=== PATIENT | male | born 1985 | race Caucasian/White ===

== ENCOUNTER 2020-12-28 08:06 | Emergency (ER) | payer OTHER, SELFPAY ==
--- NOTE | 2020-12-28 08:09 | ED.EYEPROB ---
HPI - Eye Problem General Chief complaint: Eye Problems Stated complaint: Redness and irritation in right Eye Time Seen by Provider: 12/28/20 08:09 Source: patient and RN notes reviewed History of Present Illness HPI Narrative: Patient is a 35-year-old male who presents the urgent care with complaints of matting with right eye redness and irritation. Patient states that it started on Monday after he was fishing. States that he used eyewash with some relief. Patient denies of any known trauma or injury to the eye. Denies of any vision changes. No other acute complaints. No acute distress noted. Patient aware of the plan of care. Some parts of this dictation were generated by voice recognition software and may contain typographical and/or grammatical inaccuracies. Related Data Allergies Allergy/AdvReac Type Severity Reaction Status Date / Time No Known Allergies Allergy Unknown Verified 12/28/20 08:11 Review of Systems Review of Systems: CONSTITUTIONAL: Denies fever, chills, or sweats. EYES: Reports of right eye redness, irritation and matting without visual change ENT: Denies rhinorrhea, congestion, sore throat, or otalgia. CARDIOVASCULAR: Denies chest pain, palpitations, or edema. RESPIRATORY: Denies cough or dyspnea. GASTROINTESTINAL: Denies abdominal pain, nausea, vomiting, or diarrhea. GENITOURINARY: Denies dysuria or hematuria. SKIN: Denies rash or itching. MUSCULOSKELETAL: Denies back pain, joint pain, or myalgia. NEUROLOGIC: Denies headache, numbness, or weakness. All other systems reviewed are negative, except as documented in HPI. PMFSH Comments At the time of my signature, I reviewed and agree with the nursing past medical, surgical, social, and family history. There is no relevant family history pertinent to the patient complaint. Exam Narrative: GENERAL: This is a well-nourished, well-developed patient, in no apparent distress. HEAD: normocephalic, atraumatic. EYES: PERRL. Left sclera clear/white. Right injected erythemic sclera/conjunctiva. Vision is grossly intact. EARS: External ears normal NOSE: External nose normal with no obvious nasal discharge, nares without redness, no rhinorrhea. THROAT: Mucous membranes moist NECK: Neck supple CARDIOVASCULAR: Regular rate and rhythm without murmurs, gallops, or rubs. RESPIRATORY: Clear to auscultation. Breath sounds equal bilaterally. No wheezes, rales, or rhonchi. SKIN: warm, intact with no suspicious lesions or rash, good texture and turgor. NEURO: awake, alert, and oriented to person, place and time. There were no obvious focal neurologic abnormalities. EXTREMITIES: No clubbing, cyanosis, or edema. Course Vital Signs Vital signs: Vital Signs Temperature 99 F 12/28/20 08:12 Pulse Rate 74 12/28/20 08:12 Respiratory Rate 20 12/28/20 08:12 Blood Pressure 130/85 12/28/20 08:12 Pulse Oximetry 99 12/28/20 08:12 Temperature 99 F 12/28/20 08:12 Pulse Rate 74 12/28/20 08:12 Respiratory Rate 20 12/28/20 08:12 Blood Pressure 130/85 12/28/20 08:12 Pulse Oximetry 99 12/28/20 08:12 Reviewed MDM - Eye Problem MDM Narrative Medical decision making narrative: Advised the patient to use the eyedrops to the right eye as directed. Be sure to you complete the full prescription days. May use a warm compress over the eye for comfort. Make sure you are wiping the applicator tip and using a new wash rag with each application/use. Follow-up with your PCP within 2 to 5 days or for worsening symptoms or failure to improve. Patient referred eyewash/ eye exam. Differential Diagnosis Differential diagnosis: Likely corneal abrasion, conjunctivitis, acute iritis and subconjunctival hemorrhage Critical Care Time Critical Care Time Critical Care Time: No Discharge Plan Discharge Clinical Impression: Bacterial conjunctivitis Patient Disposition: Home, Self-Care Condition: Stable Instructions: Antibiotic Form, Conjunctivitis
[2020-12-28 08:12] VITALS: BP 130/85; PULSE 74; RESP 20; TEMP 37.2; O2SAT 99
== END 2020-12-28 08:27 | disposition home or self-care (01) ==
PROVIDERS: Emergency Provider Nurse Practitioner Family; PCP Family Medicine
DX: H10.9 Unspecified conjunctivitis (principal)
CPT/HCPCS: 99203; G0463